=== PATIENT | female | born 1965 | race Caucasian/White ===

== ENCOUNTER 2023-07-24 14:31 | Emergency (ER) | payer OTHER, BC ==
[2023-07-24 14:38] VITALS: BP 151/83; PULSE 82; RESP 18; TEMP 98; BMI 27.1
[2023-07-24] MEDS ORDERED: ACETAMINOPHEN 500 MG TABLET (FP) PO ONE (15:19)
[2023-07-24] MEDS ORDERED: CYCLOBENZAPRINE HCL 10 MG TABLET (FP) PO ONE (15:19)
[2023-07-24] MEDS ORDERED: ACETAMINOPHEN 500 MG TABLET (FP) ONE (15:25)
[2023-07-24] MEDS ORDERED: CYCLOBENZAPRINE HCL 10 MG TABLET (FP) ONE (15:25)
== END 2023-07-24 16:10 | disposition home or self-care (01) ==
LOC: JERFT 14:31
DX: M54.2 Cervicalgia (principal); M54.50 Low back pain, unspecified; M25.551 Pain in right hip; M25.552 Pain in left hip; V43.53XA Car driver injured in collision with pick-up truck in traffic accident, initial encounter
CPT/HCPCS: 72100-TC-FY; 73521-TC-FY; 99284-25

== ENCOUNTER 2024-02-29 03:52 | Emergency (ER) | payer BC ==
[2024-02-29 04:02] VITALS: BP 166/81; PULSE 80; RESP 18; TEMP 98.7; BMI 27.4
[2024-02-29] MEDS ORDERED: diphenhydrAMINE HCL 25 MG CAPSULE (FP) PO ONE (04:27)
[2024-02-29] MEDS ORDERED: predniSONE 20 MG TABLET (UD) ONE (04:28)
[2024-02-29] MEDS: predniSONE 20 MG TABLET (UD) PO ONE (04:30)
[2024-02-29] MEDS: diphenhydrAMINE HCL 25 MG CAPSULE (FP) PO ONE (04:30)
== END 2024-02-29 06:52 | disposition home or self-care (01) ==
LOC: JER 03:52
DX: T78.40XA Allergy, unspecified, initial encounter (principal); L50.0 Allergic urticaria; R21 Rash and other nonspecific skin eruption; L29.9 Pruritus, unspecified
CPT/HCPCS: 99283-25

== ENCOUNTER 2025-08-30 16:08 | Emergency (ER) | payer BC ==
[2025-08-30 16:32] VITALS: BP 171/86; PULSE 67; RESP 18; TEMP 97.9; BMI 29.2
[2025-08-30] MEDS: RABIES VACCINE (PCEC)/PF 2.5 UNIT/VIAL IM ONE (17:01)
== END 2025-08-30 17:08 | disposition home or self-care (01) ==
LOC: JERFT 16:08
PROC: 3E0234Z Introduction of Serum, Toxoid and Vaccine into Muscle, Percutaneous Approach (ICD-10-PCS; principal; 2025-08-30)
DX: Z23 Encounter for immunization (principal)
CPT/HCPCS: 90675; 99281-25